=== PATIENT | female | born 1980 | race Caucasian/White ===

== ENCOUNTER 2021-11-24 19:00 | Inpatient (IN) | payer OTHER, SELFPAY ==
[2021-11-24 19:30] VITALS: PULSE 77; O2SAT 96
[2021-11-24 19:57] VITALS: BMI 30.1
[2021-11-24 20:07] VITALS: BP 130/97; PULSE 85; TEMP 36.9
[2021-11-24] MEDS: Lactated Ringers 1,000 ML 50 ML IV (20:15)
[2021-11-24 20:40] LABS: Absolute Lymphocyte Count 1.84 X10^3/uL (0.83-4.51); Basophil# 0.03 X10^3/uL; Basophil% 0.3 % (0-1); Eosinophil# 0.03 X10^3/uL; Eosinophils% 0.3 % (0-5); Hematocrit 39.1 % (37-47); Hemoglobin 13.1 g/dL (12.0-15.0); Lymphocyte # 1.84 X10^3/ul (0.83-4.51); Lymphocyte % 19.7 % (19-41); Mean Corp Hgb Conc 33.5 g/dL (32-36); Mean Corpuscular Hgb 30.1 pg (27.0-32.0); Mean Corpuscular Volume 89.9 fL (81-99); Mean Platelet Vol. 10.6 fl (6.2-12.0); Monocyte# 0.46 X10^3/uL; Monocyte% 4.9 % (0-10); NRBC Flagged by Analyzer 0 % (0-5); Neutrophil # 6.98 X10^3/uL (2.7-7.7); Neutrophil % 74.6 % (47-70); Platelet Count 215 K/mm3 (150-450); RBC Distribution Width CV 13.1 % (11.6-14.6); RBC Distribution Width SD 43.1 fl (35.1-43.9); Red Blood Count 4.35 M/mm3 (4.2-5.4); White Blood Count 9.4 K/mm3 (4.4-11.0)
[2021-11-24] MEDS: miSOPROStol 25 MCG TABLET PO (20:40)
--- NOTE | 2021-11-24 20:52 | PCM.HP.OB ---
HPI - General General Date of Admission: 11/24/21 Date of Service: 11/24/21 Chief Complaint: induction of labor HPI Narrative REESE KAUR, is a 1 para 0 who presents with EDC of 12/01/2021 for induction of labor due to advanced maternal age. She denies any vaginal bleeding or leaking of fluid. She is had good movement. She has had some contractions. Relevant medical history as patient is Rh-. She has had a history of abnormal Pap smears. This was can be conceived through in vitro fertilization. She is advanced maternal age greater than 40. And she has been on Synthroid 75 mcg daily. Maternal Data Information Final MARY: 12/01/21 Gestational age: 39 0/7 PFSH [facility] Medical History (Updated 11/24/21 @ 20:[address] Susi Nolan MD) Thyroid disorder Home Medications Baby Aspirin 1 cap PO/SL DAILY family hx of stroke 11/24/21 [History Last Taken 11/24/21 09:00] levothyroxine 75 mcg tablet (Synthroid) 1 mcg PO DAILY Thyroid 11/24/21 [History Last Taken 11/24/21 09:00] prenat.vits,david,thx-arok-vokei 1 cap PO/SL DAILY 11/24/21 [History Last Taken 11/24/21 09:00] Allergy/AdvReac Type Severity Reaction Status Date / Time No Known Allergies Allergy Verified 11/24/21 20:36 ROS Constitutional Constitutional: Denies fatigue, fever(s) or malaise Eyes Eyes: Denies change in vision ENT HEENT: Denies dizziness or headache(s) Cardiovascular Cardiovascular: Denies chest pain, dyspnea or lightheadedness Respiratory/Chest Respiratory/Chest: Denies cough or dyspnea Gastrointestinal Gastrointestinal: Denies change in bowel habits Genitourinary Genitourinary: Denies burning urination or genital lesions Integumentary Integumentary: Denies rash Neurologic Neurologic: Denies confusion, dizziness, headache(s), numbness or weakness Vital Signs Vital Signs Vital Signs: 11/24/21 19:30 11/24/21 19:30 11/24/21 20:07 Temperature 98.4 F Pulse Rate 77 Blood Pressure BP Systolic BP Diastolic Pulse Ox 96 11/24/21 20:07 11/24/21 20:07 11/24/21 20:07 Temperature 98.4 F Pulse Rate 85 Blood Pressure 130/97 H BP Systolic 130 BP Diastolic 97 Pulse Ox Weight Weight: 82.1 kg Body Mass Index (BMI) 30.1 Physical Exam Const alert and no apparent distress General Appearance: cooperative HEENT normocephalic Resp normal respiratory effort Cardio regular rate GI soft to palpation GI Narrative: gravid, nontender, appropriate for gestational age Extremity no calf tenderness General Extremity: edema Skin no wounds Rashes: No rashes noted Psych activity/motor behavior normal Labs Labs Labs: Blood Type Pending Antibody Screen Pending Hct 39.1 % (37-47) Hgb 13.1 g/dL (12.0-15.0) Assessment & Plan (1) 39 weeks gestation of : (2) Advanced maternal age (AMA) in : PLAN: Plan 41-year-old 1 para 0 at 39 0/7 weeks for induction of labor due to advanced maternal age greater than 40 and conceived by in vitro fertilization. Risk benefits and alternatives to induction were discussed with patient, her questions were answered to her satisfaction and consent was signed. Pelvis is clinically adequate to expect vaginal delivery and estimated weight is less than 4500 g clinically. Albert catheter was placed through the cervix in the usual sterile fashion inflated to 30 cc with normal saline. Placement under the internal cervical os was confirmed. Patient and fetus tolerated the procedure well.
[2021-11-24 21:06] VITALS: BP 120/90; PULSE 78; O2SAT 98
[2021-11-24] MEDS: 0.9% Normal Saline Single 100 ML IV.SOLN. INTRA-UTER (21:10)
[2021-11-24] MEDS: 0.9% Saline Lock 10 ML Syringe IV (22:18)
[2021-11-24] MEDS: Ondansetron 4 MG/2 ML Vial IV (22:18)
[2021-11-24 23:31] VITALS: BP 125/79; PULSE 69; PULSE 70; TEMP 36.7; O2SAT 97
[2021-11-25] VITALS (39 sets, daily range): BP systolic 85–160; BP diastolic 54–96; PULSE 58–95; RESP 16–18; TEMP 36.4–37.1; O2SAT 91–100
[2021-11-25] MEDS: Oxytocin 30 units/NS 500 ml 30 UNITS/500 ML IV.SOLN IV (01:29)
--- NOTE | 2021-11-25 07:24 | PCM.PN.BLA ---
Progress Note Patient seen at bedside, doing well. IV infiltrated around 6:20 AM Pitocin was then Halved- started back at 7mu. Vaginal exam performed she is 4/80/-1 AROM performed clear fluid. Continue Pitocin. Anticipate normal spontaneous vaginal delivery. Can have an epidural when she desires. heart rate tracing remains reactive category 1.
[2021-11-25] MEDS: LACTATED RINGERS 500 ML 999 ML IV (07:41)
[2021-11-25] MEDS: fentaNYL-bupivacaine (epidural) 100 ML BAG EPIDURAL (08:10)
[2021-11-25] MEDS: Lactated Ringers 1,000 ML 200 ML IV (09:59)
[2021-11-25] MEDS: Oxytocin 30 units/NS 500 ml 30 UNITS/500 ML IV.SOLN 334 UNITS IV (12:32)
--- NOTE | 2021-11-25 12:50 | EX.PCM.OBRPT ---
Vaginal Delivery Maternal Presentation Maternal Presentation: Medically Indicated Induction Maternal Presentation: AMA 39 weeks gestation, reproductive assisted Type of Induction: Pitocin, Albert Bulb, Amniotomy and Cytotec Operative Information Date of Procedure: 11/25/21 Pre-Operative Diagnosis: AMA, 39 weeks Post-Operative Diagnosis: same, live female infant Surgery / Procedure Performed: Vacuum Assisted Vaginal Delivery Type of Anesthesia: Epidural Drain: Albert to straight drain Estimated Blood Loss: 300 Time of Delivery: 12:30 Findings Description of Procedure: Called for delivery. Patient was found to be 10/100/+2. There were some prolonged decelerations down to 50 bpm Pitocin was intermittent during pushing. Vacuum was discussed with the patient and and verbal consent was obtained. We discussed risk for vaginal laceration, scalp laceration, brain bleed they agreed to proceed. The Kiwi vacuum was placed on the flexion point the Albert catheter was draining appropriately and the epidural anesthesia was found to be adequate. Patient had adequate pelvis and estimated weight was approximately 7 pounds. Vacuum was placed in the green zone at 550 mmHg. Was used initially after the 5-minute deceleration with good descent. At this time heart rate return to category 1 and maternal pushing efforts were continued without the vacuum. Fetus then again had another deceleration and maternal exhaustion was apparent discussed replacing the vacuum and they agreed. At this time to further pulls with the vacuum delivered the infant's head without complication. The vacuum was then released and the 's anterior shoulder was delivered followed posterior shoulder and the rest 's body. The infant was vigorous at delivery and placed on the mother's chest for immediate skin to skin. Delayed cord clamping was performed not for a full minute because there was a area of the cord that was actively bleeding it appeared to have a small tear in it. At this time the cord was then clamped and cut and infant remained vigorous. There was a second-degree vaginal laceration that was repaired with 2-0 Vicryl suture in a normal fashion followed by the skin was repaired using 3-0 rapide on a single needle. Small first-degree right labial laceration was repaired using 3-0 rapide. Presentation: Vertex and DIANNA Amniotic Membrane Rupture Type: Artificial Amniotic Fluid Description: Clear Placental Delivery Description: Spontaneous Placenta Disposition: [facility] Specimen(s) Removed: placenta Cord Vessel Description: 3 Vessels Cord Entanglement: None Nuchal Cord Compression: Without compression Infant A Gender: Female (1 minute): 9 (5 minute): 9 Delayed Cord Clamping: Yes Post Vaginal Delivery Medications Given After Delivery: IV Pitocin Episiotomy Description: None Laceration: Vaginal Extension/lac, 1st degree and 2nd degree
--- NOTE | 2021-11-25 14:36 | LES_PTH ---
PATIENT: REESE KAUR LOC: [facility] U#:[id number] AGE/SX: 41/F ROOM: [facility] RE11/24/[address]: Dr. Sailaja Owens, MDDOB: 1980 BED: 1 DIS: 11/26/2021 SPEC #: [id number] RECD: 11/25/21 15:35 STATUS: MARK REILLYLadi #: [id number] PREMA: 11/25/21 14:[address]: Sailaja Owens DEPT: SURGICAL PATHOLOGY RECD BY: Vi Saenz ENTERED: 11/26/21 07:59 SP TYPE: Lesion OTHR DR: Dr. Gurinder Foster MD Tissues: Vulva, NOS Procedures: Surgery Specimen Level IV HEADER OPERATION: Removal of multiple vulvar skin lesions PRE-OP DIAGNOSIS: Vulvar lesions TISSUE SUBMITTED: Vulvar lesions MICROSCOPIC DIAGNOSIS Vulvar lesions, biopsy: Fragments of condyloma acuminatum. AM:gulshan 11/27/2021 MICROSCOPIC DESCRIPTION Slides are reviewed. GROSS DESCRIPTION Received is one container labeled with the patient's name and not further designated. The specimen consists of multiple irregular fragments of rosario-brown skin that in aggregate measure 1.5 x 0.5 x 0.3 cm. The specimen is totally submitted in one cassette. / SJ:gulshan 11/26/2021 TC:5 CPT: 74317
[2021-11-25] MEDS: Ibuprofen 600 MG Tablet PO (15:04)
[2021-11-25] MEDS: Benzocaine/Lanolin/Aloe Vera 1 SPRAY EACH TOPICAL (15:04)
[2021-11-25] MEDS: Acetaminophen 500 MG Tablet 1000 MG PO (16:06)
[2021-11-26] VITALS (14 sets, daily range): BP systolic 116–139; BP diastolic 76–94; PULSE 66–88; RESP 16–20; TEMP 36.3–37.2; O2SAT 93–96
[2021-11-26] MEDS: Ibuprofen 600 MG Tablet PO ×3 (00:25→16:09)
[2021-11-26] MEDS: Levothyroxine 75 MCG Tablet PO (06:26)
[2021-11-26 09:18] LABS: Absolute Lymphocyte Count 1.58 X10^3/uL (0.83-4.51); Absolute Neutrophil Count 11.9 X10^3/uL (2.0-7.7); Basophil# 0.04 X10^3/uL; Basophil% 0.3 % (0-1); Eosinophil# 0.06 X10^3/uL; Eosinophils% 0.4 % (0-5); Hematocrit 38.9 % (37-47); Lymphocyte # 1.58 X10^3/ul (0.83-4.51); Lymphocyte % 11.1 % (19-41); Mean Corp Hgb Conc 33.4 g/dL (32-36); Mean Corpuscular Hgb 30.1 pg (27.0-32.0); Mean Platelet Vol. 10.7 fl (6.2-12.0); Monocyte# 0.57 X10^3/uL; NRBC Flagged by Analyzer 0 % (0-5); Neutrophil # 11.92 X10^3/uL (2.7-7.7); Neutrophil % 83.8 % (47-70); Platelet Count 199 K/mm3 (150-450); RBC Distribution Width CV 13.5 % (11.6-14.6); RBC Distribution Width SD 44.2 fl (35.1-43.9); Red Blood Count 4.32 M/mm3 (4.2-5.4); White Blood Count 14.2 K/mm3 (4.4-11.0)
[2021-11-26 09:32] LABS: ALB/GLOB Ratio 0.6 RATIO (0.9-2.4); AST(SGOT) 23 U/L (15-37); Alanine Aminotransfer ALT/SGPT 26 U/L (13-56); Albumin, Serum 2.6 g/dL (3.2-5.0); Alkaline Phosphatase 113 U/L (45-117); Anion Gap 9 (5-15); BUN 9 mg/dL (7-18); BUN/Creat Ratio 13.4 RATIO (10-20); Calcium,Total 9.4 mg/dL (8.5-10.1); Chloride 108 mmol/L (98-107); Creatinine, Serum 0.67 mg/dL (0.55-1.02); EST Glomerular Filtration Rate 103 mL/min (>60); Est Glom Filt Rate - Afr Amer 125 mL/min (>60); Estimated Creatinine Clearance 100.44 ml/min; Glucose 87 mg/dL (74-106); Potassium 3.7 mmol/L (3.5-5.1); Protein, Total 6.6 g/dL (6.4-8.2); Sodium Level 140 mmol/L (136-145); Uric Acid 4.4 mg/dL (2.6-6.0)
--- NOTE | 2021-11-26 13:33 | PN.OBGYN_ITS ---
Subjective Subjective Denies complaints Objective Data Objective Data Vital Signs: Vital Signs Temp Pulse Resp BP Pulse Ox O2 Del Method 98.4 F 81 16 119/82 H 93 Room Air 11/26/21 12:07 11/26/21 12:07 11/26/21 12:05 11/26/21 12:07 11/26/21 04:29 11/26/21 12:05 Oxygen Delivery Method Room Air Weight: 181 lb Body Mass Index (BMI) 30.1 Intake & Output: Intake and Output for Last 24 Hours 11/24/21 11/25/21 11/26/21 23:59 23:59 23:59 Intake Total 2724.81 / 2724.81 Output Total 700 / 700 Balance 202.81 / 2023.81 Lab / Micro Data Result Diagrams: 11/26/21 09:05 11/26/21 09:05 Labs: Laboratory Results - last 24 hr 11/26/21 09:05: Sodium 140, Potassium 3.7, Chloride 108 H, Carbon Dioxide 23.0, Anion Gap 9, BUN 9, Creatinine 0.67, Estim Creat Clear Calc 100.44, Est GFR (MDRD) Af Amer 125, Est GFR (MDRD) Non-Af 103, BUN/Creatinine Ratio 13.4, Glucose 87, Uric Acid 4.4, Calcium 9.4, Total Bilirubin 0.60, AST 23, ALT 26, Alkaline Phosphatase 113, Total Protein 6.6, Albumin 2.6 L, Globulin 4.0, Albumin/Globulin Ratio 0.6 L 11/26/21 09:05: WBC 14.2 H, RBC 4.32, Hgb 13.0, Hct 38.9, MCV 90.0, MCH 30.1, MCHC 33.4, RDW Std Deviation 44.2 H, RDW Coeff of Faye 13.5, Plt Count 199, MPV 10.7, Immature Gran % (Auto) 0.400, Neut % (Auto) 83.8 H, Lymph % (Auto) 11.1 L, [place] % (Auto) 4.0, Eos % (Auto) 0.4, Baso % (Auto) 0.3, Absolute Neuts (auto) 11.9 H, Absolute Lymphs (auto) 1.58, Nucleated RBC % 0 Micro: Microbiology 11/24/21 21:15 Nasal Secretion SARS-CoV-2 Antigen (Rapid) - Final Physical Exam Const alert, oriented x3 and no apparent distress HEENT normocephalic GI soft to palpation, non-tender and non-distended GI Narrative: fundus firm, mid & below umbilicus Extremity normal to inspection and no calf tenderness Assessment & Plan (1) Advanced maternal age (AMA) in : COMMENT: PPD#1 PLAN: Elevated diastolic BPs this morning (91-94) - BP's currently normal. PreE labs normal. At this time there is no evidence of preE. Routine PP care Possible d/c home later today
--- NOTE | 2021-11-26 13:35 | DCINST_ITS ---
Discharge Instructions Diet Discharge Diet: No restrictions Activity Discharge Activity: May Shower May resume sexual activity in: 6 weeks Weight Bearing Status: Weight bearing as tolerated Dressing / Incision Call your doctor if you observe: Fever of 101 or Higher, Coldness, Increased Pain, Change in Color, Inability to urinate, Inability to have a bowel movement, Using more than 1 pad per hour, Shortness of breath, Dizziness, Fainting spells, Chest pain, Increased palpitations (irregular heartbeat), Calf discomfort and Uncontrolled pain Suture Line Care: Avoid Pulling/Pushing and Avoid Pinching/Bending Remove Dressing in: 1 week Cleanse incision/area with: Soap & Water Follow Up Care Please Follow Up With: Sailaja Owens MD When: Follow up in 1 and 6 weeks for visits. Test Results: Test results from this visit will be discussed in further detail at your follow- up appointment, if applicable. Discharge Plan Admission Admit Date/Time: 11/24/21 19:00 Primary Reason for Your Visit: Vaginal delivery Attending Provider: Sailaja Owens Primary Care Provider: Gurinder Foster Discharge Orders/Prescriptions Prescriptions: New acetaminophen 500 mg Tablet 1,000 mg PO Q6H PRN PRN (Reason: Pain 1-10 Or Fever) Qty: 0 0RF levothyroxine 75 mcg Tablet 75 mcg PO 0600 Qty: 0 0RF ibuprofen 600 mg Tablet 600 mg PO Q6H PRN PRN (Reason: Pain Score 1-3) Qty: 0 0RF Continued prenat.vits,david,yjd-qeqj-zfgfw 1 cap PO/SL DAILY MDD 1 Discontinued levothyroxine [Synthroid] 75 mcg Tablet 1 mcg PO DAILY Baby Aspirin capsule 1 cap PO/SL DAILY Referrals / Follow Up: Gurinder Foster MD [Primary Care Provider] - Disposition Disposition (needs filled in before D/C Order can be placed): Home, Self Care
--- NOTE | 2021-11-26 15:14 | NURSING ---
Student charting reviewed-Rosey ARELLANO
--- NOTE | 2021-11-26 15:23 | CASEMGMT ---
Social Work Brief Assessment Labor and Delivery Unit Patient Address: [address] [place] [address] , [place] [address] Phone number:[phone] Date of Referral/Notification: 11/25/2021 Time of Referral: 2128 Referred By: Dr. Balta Nascimento Date of Intervention: 11/26/2021 Time of Intervention: Approximately 1330 Reason for Referral: Flat affect Informant: Medical record and mother of baby (MOB) Jenny Brown and father of baby (FOB) Jamari Brown History: DEEPTHI is a 41-year-old female, to the FOB for about 3 years. [place] baby is the first child for MOB and FOB together, with the FOB having a prior marriage and having 3 children from that marriage. Those older children are ages 23, 20, and 16 and MOB reports the children visit regularly. baby girl is named Gene Brown (born 11/25/2021). [place] was conceived via IVF, and on the first try. During private conversation with the MOB, MOB denied any type of safety concerns or domestic violence issues. MOB and FOB both denied any type of concerns with substance use including marijuana. No use of alcohol during . MOB denies any history of depression or anxiety, but does acknowledge feeling more emotional and irritable during the hormonal process of IVF. Denies any history of thoughts of suicide or attempts. No voiced history of any homicidal ideation. 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 Assessment: Met with MOB and FOB together, introducing to self and social work role. MOB and FOB both pleasant and engaged in conversation. MOB did most of the talking, and FOB participated intermittently but appropriately. MOB and FOB reported to have all necessary supplies to care for the baby. FOB will be taking 2 and half weeks off to be at home to assist as needed. It is reported there are grandparents on both sides of the family who are local and willing to help out. MOB reports to have a [id number] who is a nurse, so no additional resources for support if needed. During private conversation with the MOB completed [place] depression screen with a score of 2, falling below the threshold for any depression or anxiety. MOB reports to be feeling better now that the baby is born and got through the labor and delivery process. Denies any current concerns with mood or anxiety, and reports to be feeling good overall. Educated to mood and anxiety disorders, risk factors, and importance of seeking out help and support should symptoms arise and/or become distressing. MOB expressed understanding. MOB held good eye contact, responsive to questions and spontaneous in conversation at times. Affect full though did become teary-eyed at one point, but appropriate to content being discussed. No voiced concerns this date regarding parent-child interactions or bonding. Provided MOB with information on mood and anxiety disorders and resources for home-going. Reviewed safe sleeping and the importance of taking breaks when feeling overwhelmed. Plan: MOB and will discharge home when medically ready. Information given on mood and anxiety disorders. No further needs requested or indicated. -JACK Gasca, TREY *This note was generated with [employer] dictation software. It may contain incorrect words, spelling, and punctuation that were not noted in review of the chart prior to signing*
[2021-11-27 14:16] LABS: Pathology Skin Biopsy SEE PATHOLOGY REPORT
== END 2021-11-26 16:25 | disposition home or self-care (01) | DRG 807 ==
PROVIDERS: Obstetrics & Gynecology; Admitting Provider Obstetrics & Gynecology; PCP Family Medicine; Visit Provider Obstetrics & Gynecology
DX: O99.284 Endocrine, nutritional and metabolic diseases complicating childbirth (principal); Z37.0 Single live birth; E07.9 Disorder of thyroid, unspecified; Z3A.39 39 weeks gestation of pregnancy; O70.1 Second degree perineal laceration during delivery; O76 Abnormality in fetal heart rate and rhythm complicating labor and delivery; Z79.890 Hormone replacement therapy
CPT/HCPCS: 59025; 59050; 80053; 84550; 85025; 86850; 86900; 86901; 87811; 88305; 99218; J7120; A4216; G0378; J2405

== ENCOUNTER 2022-01-17 13:00 | Outpatient (CLI) | payer OTHER, SELFPAY | END 2022-01-17 13:28 | disposition home or self-care (01) | LOC: WPOUT 13:04 → WP 13:05 | PROVIDERS: PCP Family Medicine; Visit Provider Student in an Organized Health Care Education/Training Program | DX: O92.29 Other disorders of breast associated with pregnancy and the puerperium (principal) | CPT/HCPCS: 96158 ==

== ENCOUNTER 2024-05-15 09:10 | Emergency (ER) | payer OTHER, SELFPAY ==
[2024-05-15 09:11] VITALS: BP 139/119; PULSE 98; RESP 18; TEMP 37.1; O2SAT 98; BMI 28.3
--- NOTE | 2024-05-15 09:44 | EDS_ITS ---
HPI History of Present Illness Chief Complaint: Flank Pain Informant: patient and spouse/S.O. Narrative Narrative: 44-year-old female presenting to the emergency room with the chief complaint of abdominal pain. Patient states that around 630 this morning she had gotten up and utilize the bathroom. She has sudden onset of sharp stabbing pain in the right upper abdomen rating to her back. She notes that she started menstruating yesterday and had diarrhea throughout the day. No reported fevers. She notes no lower abdominal pain. No prior history of kidney stones. She notes a history of hypothyroidism and takes control. She notes nausea and was n oted by nursing to be appearing pale. She denies any abdominal trauma. [facility] Medical History Advanced maternal age (AMA) in 39 weeks gestation of Thyroid disorder Home Medications ?Medication ?Instructions ?Recorded ?Last Taken ?Type prenat.vits,david,tus-eotw-zieaq 1 cap PO/SL DAILY pregn vega 11/24/21 11/24/21 09:00 History acetaminophen 500 mg tablet 1,000 mg (2 x 500 mg) PO Q 6H PRN 11/26/21 Unknown Rx PRN Pain 1-10 Or Fever #0 tabs ibuprofen 600 mg tablet 600 mg PO Q6H PRN PRN Pain S core 11/26/21 Unknown Rx 1-3 #0 tabs levothyroxine 50 mcg tablet 50 mcg DAILY 05/15/24 Unkn own History (Synthroid) ondansetron 4 mg disintegrating 4 mg PO Q6H PRN PRN Na usea #15 tabs 05/15/24 Unknown Rx tablet oxycodone-acetaminophen 5 mg-325 1 tab PO Q6H PRN pain 3 days #12 05/15/24 Unknown Rx mg tablet (Percocet) tabs Allergy/AdvReac Type Severity Reaction Status Date / Time No Known Allergies Allergy Verified 05/15/24 09:11 Surgical History History of surgery Social History Smoking Status: Never smoker ROS [facility] ED Constitutional Constitutional ED: Denies chills, fever(s) or weight loss Eyes Eyes: Denies change in vision or diplopia ENT ENT ED: Denies ear pain, rhinorrhea or sore throat Cardiovascular Cardiovascular: Denies chest pain, orthopnea, palpitations or racing heartbeat Respiratory/Chest Respiratory/Chest: Denies cough, dyspnea or orthopnea Gastrointestinal Gastrointestinal: Reports abdominal pain, diarrhea and nausea; Denies vomiting Genitourinary Genitourinary ED: Denies dysuria, hematuria or urinary frequency Musculoskeletal Musculoskeletal: Reports back pain; Denies arthralgias or myalgias Integumentary Denies abscess or rash Neurologic Neurologic: Denies headache(s) or weakness Psychiatric Psychiatric: Denies anxiety, depression, suicidal ideation or suicidal thoughts Endocrine Endocrinology: Denies polydipsia, polyphagia or polyuria Allergic/Immunologic Allergic/Immunologic ED: Denies mouth swelling, tongue swelling or urticaria EXAM Physical Exam Narrative Exam Narrative: Patient appears very uncomfortable in the bed. Const Vital Signs: 05/15/24 09:11 05/15/24 10:10 05/15/24 11:00 Temperature 98.7 F Temperature Source Oral Pulse Rate 98 65 68 Respiratory Rate 18 15 15 Blood Pressure 139/119 H 145/99 H 149/92 H Blood Pressure Mean 125 114 111 Pulse Ox 98 96 96 Oxygen Delivery Method Room Air Room Air 05/15/24 12:00 05/15/24 12:30 Temperature 97.8 F Temperature Source Pulse Rate 73 78 Respiratory Rate 16 16 Blood Pressure 159/111 H 140/102 H Blood Pressure Mean 127 114 Pulse Ox 96 99 Oxygen Delivery Method Positive well nourished and well developed General Appearance ED: well developed HEENT Reports normocephalic, head/scalp atraumatic and moist mucous membranes Eyes PERRL and EOMs intact bilaterally Neck no lymphadenopathy, supple and no JVD Resp normal respiratory effort and clear to auscultation bilaterally Cardio regular rate, regular rhythm and no murmurs GI normal to inspection, nondistended, normoactive bowel sounds and non-tender Palpation: soft Back/Spine no CVA tenderness and normal ROM Extremity normal to inspection General Extremety ED: Negative for edema General Extremity: Negative for edema Neuro oriented x3 and CN's II-XII intact bilaterally Sensorium / Orientation: alert Motor Exam: strength 5/5 throughout Psych mental status grossly normal Mood & Affect: Negative for depressed or tearful Skin no rashes or lesions noted and no wounds Skin Narrative: Slightly pale appearing MDM MDM MDM Narrative Medical decision making narrative: Differential diagnosis includes colitis pyelonephritis acute cystitis ureterolithiasis volvulus bowel obstruction GERD pancreatitis renal splenic infarct/thrombosis White count nonspecifically elevated 11.8 creatinine is normal at 0.89 test is negative urinalysis 5-10 red cells no obvious infection. Noncontrasted CT of the abdomen pelvis was obtained. This demonstrates some hydronephrosis on the left side. There is a distal ureteral stone at the left UVJ. Believe this is most likely the cause of the patient's pain. She was treated with morphine Toradol and Zofran. She is improved on repeat examination. I do think the patient can be discharged home. I will write for pain and nausea medicine. Patient to return if worsening or concerns. Based on the above findings I do not think we need to repeat the CT with IV contrast at this time. History & Record Review Discussion w/independent historian: Patient and Significant other Lab Data Attestation: I reviewed the patient's lab results. Labs: Laboratory Results - last 24 hr 05/15/24 05/15/24 09:56 11:20 WBC 11.8 H RBC 4.93 Hgb 14.4 Hct 44.5 MCV 90.3 MCH 29.2 MCHC 32.4 RDW Std Deviation 41.6 RDW Coeff of Faye 12.6 Plt Count 361 MPV 8.7 Immature Gran % (Auto) 0.300 Neut % (Auto) 85.8 H Lymph % (Auto) 9.4 L [place] % (Auto) 3.2 Eos % (Auto) 0.6 Baso % (Auto) 0.7 Absolute Neuts (auto) 10.1 H Absolute Lymphs (auto) 1.10 Nucleated RBC % 0 Sodium 138 Potassium 3.8 Chloride 110 H Carbon Dioxide 19.0 L Anion Gap 9 BUN 12 Creatinine 0.89 Estim Creat Clear Calc 83.69 Est GFR (MDRD) Af Amer 89 Est GFR (MDRD) Non-Af 74 BUN/Creatinine Ratio 13.5 Glucose 98 Calcium 9.5 Serum , Qual NEGATIVE Urine Color Yellow Urine Clarity Clear Urine pH 6.0 Ur Specific [place] 1.020 Urine Protein 30 H Urine Glucose (UA) Normal Urine Ketones Negative Urine Occult Blood 150 H Urine Nitrite Negative Urine Bilirubin Negative Urine Urobilinogen Normal Ur Leukocyte Esterase Negative Urine RBC 5-10 SEEN Urine WBC 0 SEEN Ur Squamous Epith Cells 0-5 SEEN Urine Bacteria 0 SEEN Urine Mucus 0 SEEN Radiography Diagnostic Testing: Clinical Impression(s) from Imaging Studies Abdomen/Pelvis CT 05/15/24 09:44 IMPRESSION: 1. No acute abdominopelvic finding. 2. Punctate calculus at the left ureterovesical junction with mild hydroureteronephrosis and perinephric stranding, compatible with recently passed left kidney stone. 3. Mild hepatomegaly and diffuse hepatic steatosis. One or more dose reduction techniques were used (e.g., Automated exposure control, adjustment of the mA and/or kV according to patient size, use of iterative reconstruction technique). Reading Location: [id number] Discharge Plan Triage Chief Complaint: Flank Pain ED Provider: Steven Day Dx/Rx/DC Orders Clinical Impression: Kidney stone on left side, Acute flank pain Instructions: ED Kidney Stone with Pain Prescriptions: New oxycodone-acetaminophen [Percocet] 5-325 mg tablet 1 tab PO Q6H PRN (Reason: pain) 3 Days Qty: 12 0RF ondansetron 4 mg tablet,disintegrating 4 mg PO Q6H PRN PRN (Reason: Nausea) Qty: 15 0RF No Action prenat.vits,david,igv-ramy-vymav 1 cap PO/SL DAILY MDD 1 acetaminophen 500 mg Tablet 1,000 mg PO Q6H PRN PRN (Reason: Pain 1-10 Or Fever) Qty: 0 0RF ibuprofen 600 mg Tablet 600 mg PO Q6H PRN PRN (Reason: Pain Score 1-3) Qty: 0 0RF levothyroxine [Synthroid] 50 mcg tablet 50 mcg DAILY Primary Care Provider: Gurinder Foster Referrals: Gurinder Foster MD [Primary Care Provider] - As Needed Print Language: Upper Sorbian Disposition Disposition: Home, Self Care Discharge Date/Time: 05/15/24 12:32
--- NOTE | 2024-05-15 09:44 | CT_ITS ---
PROCEDURE: ABDOMEN/PELVIS WITHOUT CONT REASON FOR EXAM: 44-year-old female, left-sided flank pain, nausea and diarrhea. TECHNIQUE: Abdomen and pelvis CT without intravenous contrast. No oral contrast. COMPARISON: None. FINDINGS: Noncontrast technique limits evaluation of the abdominal and pelvic viscera. Lung bases: The heart is normal in size. Mild bibasilar atelectasis. Liver: The unopacified liver is mildly enlarged with mild diffuse hepatic steatosis. Left hepatic lobe simple cyst. No biliary ductal dilation. Gallbladder: No radiopaque stones within the gallbladder. Spleen: Unremarkable. Pancreas: The unopacified pancreas is unremarkable. Adrenals: Unremarkable. Kidneys: The right kidney is unremarkable. Mild hydroureteronephrosis and perinephric stranding of the left kidney. No nephrolithiasis. Bladder: Punctate calculus within the urinary bladder at the left ureterovesical junction. The urinary bladder is decompressed and otherwise unremarkable. Reproductive Organs: Unremarkable. Bowel: The bowel loops are normal in caliber. No ascites or pneumoperitoneum. Mild distal colonic diverticulosis. Normal appendix. Lymph nodes: No suspicious lymph node enlargement. Vasculature: Major vascular structures are unremarkable. Bones/soft tissues: Minimal lumbar spondylosis. No aggressive osseous lesions. Mild subcutaneous nodularity along the lateral gluteus musculature, likely prior injection sites. CT/Abdomen/Pelvis without Cont IMPRESSION: 1. No acute abdominopelvic finding. 2. Punctate calculus at the left ureterovesical junction with mild hydrouretero nephrosis and perinephric stranding, compatible with recently passed left kidney stone. 3. Mild hepatomegaly and diffuse hepatic steatosis. One or more dose reduction techniques were used (e.g., Automated exposure contr ol, adjustment of the mA and/or kV according to patient size, use of iterative reconstruction technique). Reading Location: [id number]
[2024-05-15] MEDS: Ketorolac 30 MG/ML Syringe IV (09:54)
[2024-05-15] MEDS: Morphine 4 MG/ML Syringe IV (09:54)
[2024-05-15] MEDS: Ondansetron 4 MG/2 ML Vial IV (09:54)
[2024-05-15 10:01] LABS: Absolute Neutrophil Count 10.1 X10^3/uL (2.0-7.7); Basophil# 0.08 X10^3/uL; Basophil% 0.7 % (0-1); Eosinophil# 0.07 X10^3/uL; Eosinophils% 0.6 % (0-5); Hematocrit 44.5 % (37-47); Hemoglobin 14.4 g/dL (12.0-15.0); Lymphocyte % 9.4 % (19-41); Mean Corp Hgb Conc 32.4 g/dL (32-36); Mean Corpuscular Hgb 29.2 pg (27.0-32.0); Mean Corpuscular Volume 90.3 fL (81-99); Mean Platelet Vol. 8.7 fl (6.2-12.0); Monocyte# 0.38 X10^3/uL; Monocyte% 3.2 % (0-10); NRBC Flagged by Analyzer 0 % (0-5); Neutrophil # 10.09 X10^3/uL (2.7-7.7); Neutrophil % 85.8 % (47-70); Platelet Count 361 K/mm3 (150-450); RBC Distribution Width CV 12.6 % (11.6-14.6); RBC Distribution Width SD 41.6 fl (35.1-43.9); Red Blood Count 4.93 M/mm3 (4.2-5.4); White Blood Count 11.8 K/mm3 (4.4-11.0)
[2024-05-15 10:10] VITALS: BP 145/99; PULSE 65; RESP 15; O2SAT 96
[2024-05-15 10:10] LABS: Internal QC Validated? YES +Cl - CLEAR BKGD; Pregnancy, Serum, hCG Quali. NEGATIVE Negative
[2024-05-15 10:15] LABS: Anion Gap 9 (5-15); BUN 12 mg/dL (7-18); BUN/Creat Ratio 13.5 RATIO (10-20); Calcium,Total 9.5 mg/dL (8.5-10.1); Chloride 110 mmol/L (98-107); Creatinine, Serum 0.89 mg/dL (0.55-1.02); EST Glomerular Filtration Rate 74 mL/min (>60); Est Glom Filt Rate - Afr Amer 89 mL/min (>60); Estimated Creatinine Clearance 83.69 ml/min; Glucose 98 mg/dL (74-106); Potassium 3.8 mmol/L (3.5-5.1); Sodium Level 138 mmol/L (136-145)
[2024-05-15 11:00] VITALS: BP 149/92; PULSE 68; RESP 15; O2SAT 96
[2024-05-15 11:30] LABS: Bacteria 0 SEEN /hpf (None Seen); Mucous, Urine 0 SEEN /hpf (<or=2+); White Blood Cells 0 SEEN /hpf (0-5)
[2024-05-15 11:35] LABS: Color, Urine Yellow (Yellow); Glucose, Dipstick Normal (Normal); Ketone-Dipstick Negative (Negative); Leukocyte Esterase-Dipstick Negative /ul (Negative); Nitrite-Dipstick Negative (Negative); Occult Blood-Urine 150 /ul (Negative); Protein-Dipstick 30 mg/dl (Negative); Urine Bilirubin Dipstick Negative (Negative); Urine Clarity Clear (Clear); Urine Urobilinogen Normal (Normal)
[2024-05-15 11:40] LABS: Squamous Epithelial Cells - UA 0-5 SEEN /hpf (5-10)
[2024-05-15 11:41] LABS: Red Blood Cells-Urine 5-10 SEEN /hpf (0-5)
[2024-05-15 12:00] VITALS: BP 159/111; PULSE 73; RESP 16; O2SAT 96
[2024-05-15 12:30] VITALS: BP 140/102; PULSE 78; RESP 16; TEMP 36.6; O2SAT 99
== END 2024-05-15 12:32 | disposition home or self-care (01) ==
PROVIDERS: Emergency Provider Emergency Medicine; PCP Family Medicine; Visit Provider Emergency Medicine
DX: N13.2 Hydronephrosis with renal and ureteral calculous obstruction (principal); R19.7 Diarrhea, unspecified; E03.9 Hypothyroidism, unspecified; Z79.890 Hormone replacement therapy; Z79.899 Other long term (current) drug therapy; Z79.3 Long term (current) use of hormonal contraceptives
CPT/HCPCS: 74176; 80048; 81001; 84703; 85025; 96374; 96375; 99284; A4216; J2405